=== PATIENT | female | born 1950 | race Two or more races ===

== ENCOUNTER 2019-06-25 20:47 | Emergency (ER) | payer MEDICARE, OTHER ==
[~2019-06-25] VITALS: Ht 162.6 cm; Wt 103.9 kg
--- NOTE | 2019-06-25 21:08 | NUR ---
PT AAOX4. AMBULATORY. BIBS FOR C/O COUGH AND RUNNY NOSE W/ GREEN DISCHARGES FOR THE PAST FEW DAYS. PT ALSO C/O RASH "ON AND OFF" AWAITING MD FOR EVAL. VSS.
--- NOTE | 2019-06-25 21:37 | NUR ---
XRAY AT BEDSIDE
--- NOTE | 2019-06-26 00:16 | NUR ---
Patient discharged to home in stable condition. Written and verbal after care instructions given. Patient verbalizes understanding of instruction and RX. PT signed homeless waiver. Pt provided with food and resources.
[2019-06-26 00:18] VITALS: BP 149/98
== END 2019-06-26 00:18 | disposition home or self-care (01) ==
LOC: ER 20:55
DX: J40 Bronchitis, not specified as acute or chronic (principal); Z59.0 Homelessness
CPT/HCPCS: 71045-TC

== ENCOUNTER 2019-06-26 17:19 | Emergency (ER) | payer MEDICARE, OTHER ==
[~2019-06-26] VITALS: Ht 165.1 cm; Wt 108.9 kg
--- NOTE | 2019-06-26 17:40 | NUR ---
PT CAME TO ER BED 14 C/O PAIN ON BOTH HANDS ALONG WITH ITCHING. AAOX4. VSS. NO SOB. WILL CONTINUE TO MONITOR
--- NOTE | 2019-06-26 17:41 | NUR ---
AT BEDSIDE FOR EVALUATION.
--- NOTE | 2019-06-26 17:50 | NUR ---
XRAY AT BEDSIDE
[2019-06-26] MEDS ORDERED: IBUPROFEN 600 MG TABLET PO ONE ×2 (17:53→18:00)
--- NOTE | 2019-06-26 17:56 | NUR ---
HAND ASSEMBLER AT BEDSIDE FOR BLOOD DRAW
[2019-06-26 18:06] LABS: BASOPHILS % (AUTO) 0.2 % (0.0-2.0); EOSINOPHILS % (AUTO) 5.4 % (0.0-6.0); HEMATOCRIT 45 % (33-45); HEMOGLOBIN 14.4 g/dL (11.5-14.8); LYMPHOCYTES # (AUTO) 1.5 /CMM (0.8-4.8); MEAN CORPUSCULAR HGB CONC 32 g/dl (31.0-36.0); MEAN CORPUSCULAR VOLUME 90 fL (82-100); MONOCYTES # (AUTO) 0.5 /CMM (0.1-1.30); MONOCYTES % (AUTO) 10.2 % (2.0-12.0); NEUTROPHILS # (AUTO) 2.7 /CMM (1.8-8.9); NEUTROPHILS % (AUTO) 54.2 % (43.0-81.0); PLATELET COUNT (AUTO) 240 /CMM (150-450)
[2019-06-26 18:14] LABS: CALCIUM, SERUM 10.3 mg/dL (8.5-10.1); CARBON DIOXIDE 32 mmol/L (21-32); CHLORIDE 105 mmol/L (98-107); CREATININE 1.1 mg/dL (0.6-1.3); GLUCOSE 113 mg/dL (74-106); POTASSIUM 3.8 mmol/L (3.5-5.1); SODIUM SERUM 142 mmol/L (136-145); UREA NITROGEN, BLOOD 16 mg/dL (7-18)
[2019-06-26 18:27] LABS: ACETAMINOPHEN 0 ug/ml (10-30); ALANINE AMINOTRANSFERASE 20 U/L (12-78); ALBUMIN 3.3 g/dL (3.4-5.0); ALCOHOL, BLOOD < 3 mg/dL (0-0); ALKALINE PHOSPHATASE 146 U/L (46-116); ASPARTATE AMINOTRANSFERASE 17 U/L (15-37); BILIRUBIN,DIRECT 0.1 mg/dL (0.0-0.2); BILIRUBIN,TOTAL 0.8 mg/dL (0.2-1.0)
[2019-06-26 18:57] LABS: APPEARANCE,URINE Clear (CLEAR); BILIRUBIN,URINE Negative (NEGATIVE); BLOOD, URINE Negative Ery/uL (NEGATIVE); COLOR,URINE Yellow (YELLOW); KETONES,URINE Negative (NEGATIVE); LEUKOCYTE ESTERASE ,URINE Small (NEGATIVE); NITRITE, URINE Negative (NEGATIVE); PH,URINE 5.5 (5.0-8.0); PROTEIN,URINE Negative (NEGATIVE); UGLUCOSE Negative (NEGATIVE); UROBILINOGEN,URINE 0.2 EU/dL (0.2)
[2019-06-26 19:02] LABS: BACTERIA,URINE None seen /HPF (None Seen); SQUAMOUS EPITHELIAL CELL,UR Few /HPF (None Seen); WBC,URINE 0-2 /HPF (0-3)
--- NOTE | 2019-06-26 19:08 | NUR ---
PT RESTING COMFORTABLY. VSS.
[2019-06-27] MEDS ORDERED: GUAIFENESIN/CODEINE 10 ML UDC ONE (00:10)
[2019-06-27] MEDS ORDERED: GUAIFENESIN/CODEINE 10 ML UDC PO PRN (00:30)
--- NOTE | 2019-06-27 02:02 | NUR ---
pt resting comfortably. vss.
--- NOTE | 2019-06-27 08:25 | NUR ---
Social service consult requested by MD for possible SNF vs senior living placement. Per MD notes, pt is a 69-year-old Female, homeless, who presented to the ED for evaluation of bilateral hand pain and skin itching. MACHINE SET UP OPERATOR met with the pt bedside. MACHINE SET UP OPERATOR introduced self and explained her role. Pt is alert and oriented x 4. Pt's mood is congruent. Pt. states she has been homeless for almost a year. Prior to being homeless, pt was residing in [place]. Pt reports to have been wrongfully incarcerated from [id number] and is awaiting a settlement. Currently pt reports to have no income. Pt denies any psychiatric diagnoses or hospitalizations. Pt denies any suicidal and homicidal ideations at this time. MACHINE SET UP OPERATOR offered pt. SNF placement, if deemed appropriate, however, pt declined. Pt. is requesting information on [facility] senior living placement. MACHINE SET UP OPERATOR provided pt with homeless packet that included [facility] [id number] [place] senior living placement list, homeless shelters, food quinn, hot showers, medical and mental health clinics and substance abuse referrals. Pt denies any alcohol/drug use. Pt was provided with breakfast and TAP card. Homeless Patient waiver form was signed by the pt and placed in pt's chart. No other social service needs are requested at this time.
[2019-06-27] MEDS ORDERED: IBUPROFEN 600 MG TABLET PO ONE (09:00)
[2019-06-27 09:18] VITALS: BP 134/71
--- NOTE | 2019-06-27 09:20 | NUR ---
Patient given written and verbal discharge instructions. Patient verbalizes understanding of instructions. Patient is ambulatory with steady gait. Refuses offer of [facility] placement. Patient given list of available shelters in surrounding area. Meal and tap card provided.
== END 2019-06-27 09:20 | disposition home or self-care (01) ==
LOC: ER 17:25
DX: M13.842 Other specified arthritis, left hand (principal); M13.841 Other specified arthritis, right hand; M20.092 Other deformity of left finger(s); E66.9 Obesity, unspecified; Z68.39 Body mass index [BMI] 39.0-39.9, adult; Z59.0 Homelessness
CPT/HCPCS: 36415; 71045; 80048; 80076; 80305; 80307; 80329; 81001; 85025; 99284; G0480; 81000-TC

== ENCOUNTER 2019-06-30 19:25 | Emergency (ER) | payer MEDICARE, OTHER ==
[~2019-06-30] VITALS: Ht 162.6 cm; Wt 122.5 kg
[2019-06-30 19:59] VITALS: BP 157/89
[2019-06-30] MEDS ORDERED: diphenhydrAMINE HCL 25 MG CAPSULE PO ONE (20:30)
[2019-06-30] MEDS ORDERED: IVERMECTIN 3 MG TABLET PO ONE (20:30)
[2019-06-30] MEDS ORDERED: diphenhydrAMINE HCL 50 MG CAPSULE ONE (20:37)
== END 2019-06-30 20:45 | disposition home or self-care (01) ==
LOC: ER 19:32
DX: B86 Scabies (principal); Z59.0 Homelessness
CPT/HCPCS: 99283; Q0163

== ENCOUNTER → 2019-08-12 | Emergency (ER) | payer MEDICAID, OTHER ==
[~2019-08-12] VITALS: Ht 162.6 cm; Wt 122.5 kg
[~2019-08-12] MED LIST: FLUCONAZOLE (100 MG) 100 MG TABLET ONE; FLUCONAZOLE (100 MG) 100 MG TABLET PO ONE
[2019-08-12 15:17] VITALS: BP 180/87
== END | disposition home or self-care (01) ==
LOC: ER 15:12
DX: L30.4 Erythema intertrigo (principal); B35.1 Tinea unguium; B35.3 Tinea pedis; I10 Essential (primary) hypertension; E11.9 Type 2 diabetes mellitus without complications; Z59.0 Homelessness

== ENCOUNTER 2019-10-14 13:10 | Emergency (ER) | payer BC, OTHER ==
[~2019-10-14] VITALS: Ht 162.6 cm; Wt 122.5 kg
--- NOTE | 2019-10-14 13:27 | NUR ---
AT BEDSIDE FOR EVAL.
[2019-10-14] MEDS ORDERED: LISINOPRIL (20MG) 20 MG TABLET PO SCH (13:30)
--- NOTE | 2019-10-14 13:33 | NUR ---
CALLED PHARMACY FOR LINSINOPRIL.
[2019-10-14] MEDS ORDERED: IBUPROFEN 600 MG TABLET PO ONE ×3 (14:02→14:30)
[2019-10-14 14:13] VITALS: BP 144/95
== END 2019-10-14 14:14 | disposition home or self-care (01) ==
LOC: ER 13:13
DX: I10 Essential (primary) hypertension (principal); L53.9 Erythematous condition, unspecified; E11.9 Type 2 diabetes mellitus without complications; Z91.14 Patient's other noncompliance with medication regimen; Z59.0 Homelessness

== ENCOUNTER 2019-11-25 09:11 | Emergency (ER) | payer BC, OTHER ==
[~2019-11-25] VITALS: Ht 162.6 cm; Wt 122.5 kg
[2019-11-25 09:11] VITALS: BP 183/80
--- NOTE | 2019-11-25 09:11 | NUR ---
BIB SELF C/O COUGH AND CONGESTION, YO ER BED 7, HOOKED TO MONITOR, PROVIDED W WARM BLANKET, AWAITING MD BASSETT.
--- NOTE | 2019-11-25 09:40 | NUR ---
MARKETING PROFESSIONAL AT BEDSIDE FOR XRAY.
--- NOTE | 2019-11-25 10:16 | NUR ---
Patient given written and verbal discharge instructions. Patient verbalizes understanding of instructions. Patient is ambulatory with steady gait. Refuses offer of [facility] placement. Patient given list of available shelters in surrounding area.
== END 2019-11-25 10:18 | disposition home or self-care (01) ==
LOC: ER 09:28
DX: R05 Cough (principal); L30.9 Dermatitis, unspecified; I10 Essential (primary) hypertension; E11.9 Type 2 diabetes mellitus without complications; Z59.0 Homelessness
CPT/HCPCS: 71045-TC

== ENCOUNTER 2019-12-21 21:33 | Emergency (ER) | payer BC, MEDICAID ==
[~2019-12-21] VITALS: Ht 162.6 cm; Wt 111.1 kg
--- NOTE | 2019-12-21 22:04 | NUR ---
CALLED PT IN [place] X[place]. NO ONE RESPONDED AT THIS TIME. WILL FOLLOW UP.
[2019-12-21 22:26] VITALS: BP 187/85
[2019-12-21] MEDS ORDERED: IBUPROFEN 600 MG TABLET PO ONE ×2 (22:36→23:00)
--- NOTE | 2019-12-21 22:54 | NUR ---
Patient given written and verbal discharge instructions. Patient verbalizes understanding of instructions. Patient is ambulatory with steady gait. Refuses offer of group home placement. Patient given list of available shelters in surrounding area. Food and clothing provided
== END 2019-12-21 22:54 | disposition home or self-care (01) ==
LOC: ER 21:35
DX: L73.9 Follicular disorder, unspecified (principal); K13.79 Other lesions of oral mucosa; I10 Essential (primary) hypertension; E11.9 Type 2 diabetes mellitus without complications; Z59.0 Homelessness

== ENCOUNTER 2019-12-29 12:58 | Emergency (ER) | payer BC, MEDICAID ==
[~2019-12-29] VITALS: Ht 154.9 cm; Wt 114.8 kg
[2019-12-29] MEDS ORDERED: LISI-603 PO (13:37)
[2019-12-29] MEDS ORDERED: IBUP-1955 PO (13:37)
[2019-12-29 13:43] LABS: BASOPHILS # (AUTO) 0.1 /CMM (0.0-0.2); BASOPHILS % (AUTO) 1.3 % (0.0-2.0); EOSINOPHILS % (AUTO) 5.9 % (0.0-6.0); HEMATOCRIT 44 % (33-45); HEMOGLOBIN 13.8 g/dL (11.5-14.8); LYMPHOCYTES # (AUTO) 1.2 /CMM (0.8-4.8); LYMPHOCYTES % (AUTO) 23.2 % (20.0-44.0); MEAN CORPUSCULAR HGB CONC 32 g/dl (31.0-36.0); MEAN CORPUSCULAR VOLUME 91 fL (82-100); MONOCYTES # (AUTO) 0.4 /CMM (0.1-1.30); NEUTROPHILS # (AUTO) 3.2 /CMM (1.8-8.9); NEUTROPHILS % (AUTO) 62.6 % (43.0-81.0); PLATELET COUNT (AUTO) 172 /CMM (150-450); WHITE BLOOD COUNT (AUTO) 5.2 K/uL (4.3-11.0)
--- NOTE | 2019-12-29 13:49 | NUR ---
PT BIB SELF, "IM HAVING A HARD TIME BREATHING SINCE THIS MORNING." PT STABLE, AAOX3, VSS. RR EVEN & UNLABORED. DENIES CP, DIZZINESS, N/V/D, WEAKNESS AT THIS TIME. PLACED ON COLD MILL INSPECTOR, SR. PT SEEN & EVAL'D BY DR. EARL. WILL CONT TO MONITOR.
[2019-12-29 13:51] LABS: CALCIUM, SERUM 9.6 mg/dL (8.5-10.1); CARBON DIOXIDE 30 mmol/L (21-32); CHLORIDE 107 mmol/L (98-107); GLUCOSE 142 mg/dL (74-106); POTASSIUM 4.1 mmol/L (3.5-5.1); SODIUM SERUM 141 mmol/L (136-145); UREA NITROGEN, BLOOD 16 mg/dL (7-18)
[2019-12-29 14:03] LABS: ALANINE AMINOTRANSFERASE 25 U/L (12-78); ALBUMIN 3.4 g/dL (3.4-5.0); ALKALINE PHOSPHATASE 183 U/L (46-116); ASPARTATE AMINOTRANSFERASE 17 U/L (15-37); B-TYPE NATRIURETIC PEPTIDE 454 PG/ML (0-125); BILIRUBIN,DIRECT 0.1 mg/dL (0.0-0.2); BILIRUBIN,TOTAL 0.7 mg/dL (0.2-1.0); TOTAL PROTEIN, SERUM 6.6 g/dL (6.4-8.2)
--- NOTE | 2019-12-29 14:54 | NUR ---
NURSING SUPP CALLED FOR TELE BED.
[2019-12-29] MEDS ORDERED: ALBUTEROL FS 2.5 MG/3 ML VIAL.NEB CONTNEB ONE (15:00)
[2019-12-29] MEDS ORDERED: FUROSEMIDE 20 MG/2 ML VIAL IV ONE (15:00)
[2019-12-29] MEDS ORDERED: AZITHROMYCIN 250 MG TABLET PO ONE (15:00)
[2019-12-29] MEDS ORDERED: AZITHROMYCIN 250 MG TABLET ONE (15:01)
[2019-12-29] MEDS ORDERED: FUROSEMIDE 20 MG/2 ML VIAL ONE (15:01)
--- NOTE | 2019-12-29 15:06 | NUR ---
HOME CONNECT LPN AT BEDSIDE FOR ESTEBAN
[2019-12-29] MEDS ORDERED: ALBUTEROL FS 2.5 MG/3 ML VIAL.NEB ONE (15:08)
--- NOTE | 2019-12-29 15:12 | NUR ---
ONGOING BREATHING TX
--- NOTE | 2019-12-29 15:22 | NUR ---
ROOM GIVEN 107
--- NOTE | 2019-12-29 16:19 | NUR ---
CANCELLED ADMISSION. Patient discharged to home in stable condition. Written and verbal after care instructions given. Patient verbalizes understanding of instruction. IV removed. Catheter intact and site benign. Pressure and 4x4 applied to site. No bleeding noted.
[2019-12-29 16:20] VITALS: BP 148/89
== END 2019-12-29 16:24 | disposition home or self-care (01) ==
LOC: ER 13:12
DX: R06.00 Dyspnea, unspecified (principal); R05 Cough; I48.91 Unspecified atrial fibrillation; I10 Essential (primary) hypertension; R06.2 Wheezing; E66.01 Morbid (severe) obesity due to excess calories; Z68.42 Body mass index [BMI] 45.0-49.9, adult; Z87.891 Personal history of nicotine dependence; E11.9 Type 2 diabetes mellitus without complications; Z59.0 Homelessness; Z79.899 Other long term (current) drug therapy
CPT/HCPCS: 36415; 71045; 80048; 80076; 83880; 84484; 85025; 93005 ×2; 93307; 94640; 96374; 99285; J1940

== ENCOUNTER 2020-01-07 11:12 | Emergency (ER) | payer BC, OTHER ==
[~2020-01-07] VITALS: Ht 154.9 cm; Wt 115.7 kg
[~2020-01-07 11:12] MED LIST changes: -FLUCONAZOLE (100 MG) 100 MG TABLET ONE; -FLUCONAZOLE (100 MG) 100 MG TABLET PO ONE; +IBUP-1955 PO; +LISI-603 PO
--- NOTE | 2020-01-07 11:26 | NUR ---
BIBS TO ER BED 6. AAOX4. NOT IN RESP DISTRESS. AMBULATORY. CAME IN FOR BUTTOVKS PAIN X 2 DAYS. DENIES TRAUMA. DENIES FALL. PT STATES HARD TO SIT DOWN. MD WAS AT THE BEDSIDE. AWAITING ORDERS
--- NOTE | 2020-01-07 12:00 | NUR ---
Patient discharged to home in stable condition. Written and verbal after care instructions given. Patient verbalizes understanding of instruction. Pt ambulatory with a steady gait
[2020-01-07 12:24] VITALS: BP 155/85
== END 2020-01-07 12:25 | disposition home or self-care (01) ==
LOC: ER 11:15
DX: M54.5 Low back pain (principal); I10 Essential (primary) hypertension; E11.9 Type 2 diabetes mellitus without complications; Z60.2 Problems related to living alone; Z79.899 Other long term (current) drug therapy; Z59.0 Homelessness